=== PATIENT | female | born 1945 | race Caucasian/White ===

== ENCOUNTER 2022-10-25 12:02 | Emergency (ER) | payer OTHER, BC ==
[~2022-10-25] VITALS: Ht 162.6 cm; Wt 93.4 kg
--- NOTE | 2022-10-25 12:02 | NUR ---
Patient to ER bed 03 to gown for evaluation. Side rails up.
--- NOTE | 2022-10-25 12:10 | NUR ---
ER DR. SMITH EXAMINING PT
[2022-10-25 12:11] VITALS: BP_SYST 125
[2022-10-25] MEDS ORDERED: NACL 0.9% 1,000 ML IV ONE (12:15)
--- NOTE | 2022-10-25 12:21 | NUR ---
PT IN CT AT THIS TIME
[2022-10-25 12:53] LABS: BASOPHILS % (AUTO) 0.3 % (0.0-2.0); EOSINOPHILS # (AUTO) 0.1 K/uL (0.0-0.4); EOSINOPHILS % (AUTO) 0.8 % (0.0-4.0); HEMATOCRIT 45.4 % (36-48); HEMOGLOBIN 15.1 g/dL (12.0-16.0); LYMPHOCYTES # (AUTO) 0.9 K/uL (1.0-5.5); LYMPHOCYTES % (AUTO) 6.3 % (20.5-51.5); MEAN CORPUSCULAR HEMOGLOBIN 29 pg (27-31); MEAN CORPUSCULAR HGB CONC 33 % (32-36); MEAN CORPUSCULAR VOLUME 87 fL (79.0-98.0); MONOCYTES % (AUTO) 6.7 % (1.7-9.3); NEUTROPHILS # (AUTO) 12.6 K/uL (1.8-7.7); NEUTROPHILS % (AUTO) 85.9 % (40.0-70.0); PLATELET COUNT (AUTO) 186 K/uL (130-430); RED BLOOD CELL COUNT(AUTO) 5.19 MIL/uL (4.2-6.2); RED CELL DISTRIBUTION WIDTH 13.6 % (9.0-15.0); WHITE BLOOD COUNT (AUTO) 14.7 K/uL (4.8-10.8)
[2022-10-25 13:02] LABS: ANION GAP 8 (5-15); CALCIUM 9.3 mg/dL (8.4-11.0); CHLORIDE 101 mmol/L (98-107); CREATININE 0.82 mg/dL (0.55-1.30); GLUCOSE 98 mg/dL (70-99); UREA NITROGEN, BLOOD 13 mg/dL (8-21)
[2022-10-25 13:08] LABS: ALANINE AMINOTRANSFERASE 33 U/L (12-78); ALBUMIN 3.9 g/dL (3.4-4.8); ASPARTATE AMINOTRANSFERASE 22 U/L (10-37); TOTAL BILIRUBIN 2.3 mg/dL (0.0-1.0)
[2022-10-25] MEDS ORDERED: IBUP-1969 PO (13:26)
[2022-10-25] MEDS ORDERED: TRAM50TA2 PO (13:26)
[2022-10-25] MEDS ORDERED: HYDROcodone/ACETAMIN 10-325 MG TAB PO ONE (13:30)
[2022-10-25] MEDS ORDERED: IBUPROFEN 800 MG TABLET PO ONE (13:30)
[2022-10-25 14:34] VITALS: BP_SYST 131
--- NOTE | 2022-10-25 14:34 | NUR ---
Patient given written and verbal discharge instructions and verbalizes understanding. ER MD discussed with patient the results and treatment provided. Patient in stable condition. ID arm band removed. IV catheter removed intact and dressing applied, no active bleeding. Rx of given. Patient educated on pain management and to follow up with PMD. Pain Scale . Opportunity for questions provided and answered. Medication side effect fact sheet provided.
== END 2022-10-25 14:34 | disposition home or self-care (01) ==
LOC: SED 12:02
DX: S00.03XA Contusion of scalp, initial encounter (principal); R55 Syncope and collapse; I10 Essential (primary) hypertension; Z79.899 Other long term (current) drug therapy; W22.8XXA Striking against or struck by other objects, initial encounter; Y93.89 Activity, other specified; Y92.89 Other specified places as the place of occurrence of the external cause; Y99.8 Other external cause status
CPT/HCPCS: 99285; 96360; 70450; 71045; 80053; 82550; 85025; 84484; 36415; 93005; 76376; J7030